=== PATIENT | female | born 1925 | race Caucasian/White ===

== ENCOUNTER 2016-11-19 22:01 | Inpatient (IN) | payer OTHER, MEDICARE ==
[~2016-11-19] VITALS: Ht 160 cm; Wt 56.8 kg
--- NOTE | ~2016-11-19 | EKG ---
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 MCINTYRE : 1925 Requested By: Flako Santos Order Number: [id number] MD: Joaquin Bates Measurements Intervals [place] Rate: 113 P: RI: QRS: -69 QRSD: 141 T: 121 QT: 351 QTc: 482 Interpretive Statements Atrial fibrillation Left bundle branch block Baseline wander in lead(s) V1 Compared to ECG 05/26/2011 08:24:42 Ventricular-paced complex(es) or rhythm no longer present Electronically Signed On 11-20-2016 8:00:36 CDT by Joaquin Bates [email or web address] <ELECTRONICALLY SIGNED> By: Joaquin Bates MD, [facility] 11/20/16 0800 25 Joaquin Bates MD, [facility] /EPI
--- NOTE | ~2016-11-19 | EKG ---
[address] [place] [address] ELECTROCARDIOGRAM REPORT Name: AYANNA AYERS Room #: 421-P ADM IN M.R.#: [id number] Admission: 11/20/16 Attend Phys: Shakir Haskins Discharge: Date of : [birth year] Report #: [id number] THIS REPORT FOR: //name// 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 : 1925 Requested By: Saravanan Carmona Order Number: [id number] MD: Joaquin Bates Measurements Intervals [place] Rate: 102 P: [place]: QRS: -65 QRSD: 139 T: 102 QT: 335 QTc: 437 Interpretive Statements Atrial fibrillation Multiple ventricular premature complexes Left bundle branch block Compared to ECG 11/19/2016 22:26:09 No significant change was found Electronically Signed On 11-22-2016 13:58:07 CDT by Joaquin Bates [email or web address] <ELECTRONICALLY SIGNED> By: Joaquin Bates MD, [facility] 11/22/16 1358 1049 1049 Joaquin Bates MD, [facility] /EPI
--- NOTE | ~2016-11-19 | EKG ---
[address] [address] ELECTROCARDIOGRAM REPORT Name: AYANNA AYERS Room #: 421- ADM IN M.R.#: [id number] Admission: 11/20/16 Attend Phys: Shakir Haskins Discharge: Date of : [birth year] Report #: [id number] THIS REPORT FOR: //name// [facility] Test Date: 2016-11-23 Test Time: 07:38:46 Pat Name: AYANNA AYERS Department: Room: 421 Gender: F Check Processor: SVETLANA : 1925 Requested By: Bess Duron Order Number: [id number] MD: Win Joaquin Measurements Intervals [place] Rate: 90 P: CT: QRS: -70 QRSD: 137 T: 97 QT: 375 QTc: 459 Interpretive Statements Atrial fibrillation Ventricular premature complex Left bundle branch block Compared to ECG 11/21/2016 10:49:29 No significant changes Electronically Signed On 11-23-2016 21:15:45 CDT by Win Joaquin [email or web address] <ELECTRONICALLY SIGNED> By: Win Joaquin MD 11/23/165 7 7 Win Joaquin MD /AWILDA
[~2016-11-19 22:01] MED LIST: ASPIRIN EC81 M1 PO; ATENOLOL 25 MG25 M1 PO; B-COMPLEX 100400 MC1 PO; CALCIUM OYSTER500 MG PO; CARBIDOPA-LEVO1 EAC4 PO; CARBIDOPA-LEVO1 EAC5 PO; COUMADIN 2 MG TA2 M1 PO; COUMADIN 4 MG TA4 M1 PO; FISH OIL 1,0001 EAC5 PO; FLAX OIL1000 MG PO; HYDROCHLOROTHIA25 M1 PO; ICAPS TABLET1 EACH PO; LEXAPRO 10 MG T10 MG PO; LIPITOR40 MG PO; OMEPRAZOLE20 M2 PO; PINDOLOL PO; PRIMIDONE50 MG PO; RESTASIS1 EACH GTT; RYTHMOL225 MG PO; THERA-M CAPLET1 EACH PO; TIKOSYN.25; TOPROL XL50 MG; VITAMIN D31000 UNI2 PO; XANAX 0.5 MG0.5 MG PO; [UNRECOGNIZED DRUG - OTHER] PO
[2016-11-19 22:11] VITALS: BP 155/85
[2016-11-19 22:35] LABS: ABSOLUTE NEUTROPHILS 6.8 thou/uL (1.4-8.2); BASOPHILS 0.3 % (0.0-2.0); EOSINOPHILS 0.2 % (0.0-3.0); HEMATOCRIT 37.3 % (37.0-47.0); HEMOGLOBIN 12.7 gm/dL (12.0-15.0); LYMPHOCYTES 10.2 % (24.0-44.0); MCH 33.6 pg (26.0-34.0); MCV 98.9 fL (80.0-100.0); MONOCYTES 8.7 % (1.0-8.0); PLATELET COUNT 167 thou/uL (150-400); POLYS 80.6 % (36.0-66.0); RBC 3.77 mil/uL (4.20-5.00); RDW 13.2 % (10.5-14.5); WBC 8.4 thou/uL (4.0-11.0)
[2016-11-19 22:36] LABS: MANUAL DIFF NO
[2016-11-19 22:44] LABS: CALCIUM 8.8 mg/dL (8.5-10.1); CREATININE 0.8 mg/dL (0.6-1.0); POTASSIUM 3.6 mmol/L (3.5-5.1)
[2016-11-19 22:49] LABS: ALBUMIN 3.5 g/dL (3.4-5.0); TOTAL BILIRUBIN 0.8 mg/dL (<0.1-1.0); TOTAL PROTEIN 8.1 g/dL (6.4-8.2)
[2016-11-19 22:51] LABS: INR 2.4; PROTIME 24.6 Seconds (9.3-11.4)
[2016-11-19] MEDS ORDERED: AZITHROMYCIN 2250 MG PO (22:51)
[2016-11-19] MEDS ORDERED: LIPITOR 20 MG T20 M1 PO (22:52)
[2016-11-19] MEDS ORDERED: K-DUR 20 MEQ T20 MEQ PO (22:52)
[2016-11-19] MEDS ORDERED: METOPROLOL SUCC50 MG PO (22:52)
[2016-11-19] MEDS ORDERED: COUMADIN 3 MG TA3 M1 PO (22:52)
[2016-11-19] MEDS ORDERED: LASIX 20 MG TAB20 MG PO (22:52)
[2016-11-20 00:43] LABS: URINE BILIRUBIN NEGATIVE (Negative); URINE BLOOD 1+ (Negative); URINE COLOR YELLOW; URINE GLUCOSE-RANDOM* NEGATIVE (Negative); URINE KETONES NEGATIVE (Negative); URINE LEUKOCYTES-REFLEX NEGATIVE (Negative); URINE PROTEIN (DIPSTICK) NEGATIVE (Negative); URINE SPECIFIC GRAVITY <= 1.005 (1.003-1.035); URINE UROBILINOGEN 0.2 E.U./dl (0.2-1.0)
[2016-11-20 01:01] LABS: SQUAMOUS >10 Many /LPF (0-3)
[2016-11-20 01:02] LABS: CASTS None Seen /LPF (None Seen); CRYSTALS None Seen /LPF (None Seen); URINE RBC 3-10 Few /HPF (0-2); URINE WBC-REFLEX 0-5 Rare /HPF (0-5)
[2016-11-20 01:21] VITALS: BP 113/75
[2016-11-20 02:00] VITALS: BP 123/68
[2016-11-20 06:30] LABS: HEMATOCRIT 35.3 % (37.0-47.0); HEMOGLOBIN 11.9 gm/dL (12.0-15.0); MCH 33.5 pg (26.0-34.0); MCHC 33.6 g/dL (28.0-37.0); MCV 99.8 fL (80.0-100.0); RBC 3.54 mil/uL (4.20-5.00); RDW 13.3 % (10.5-14.5); WBC 7.5 thou/uL (4.0-11.0)
[2016-11-20 06:39] LABS: INR 2.2; PROTIME 22.7 Seconds (9.3-11.4)
[2016-11-20 06:42] LABS: CALCIUM 8.4 mg/dL (8.5-10.1); CREATININE 0.7 mg/dL (0.6-1.0); POTASSIUM 3.7 mmol/L (3.5-5.1)
[2016-11-20 07:17] VITALS: BP 143/91
[2016-11-20 15:27] VITALS: BP 131/74
[2016-11-20 21:45] VITALS: BP 140/86
[2016-11-21 04:00] VITALS: BP 140/82
[2016-11-21 07:10] VITALS: BP 143/71
[2016-11-21 15:37] VITALS: BP 130/77
[2016-11-21 20:00] VITALS: BP 166/89
[2016-11-22 04:34] VITALS: BP 165/85
[2016-11-22 07:19] VITALS: BP 145/83
[2016-11-22 11:35] LABS: INR 1.4; PROTIME 14.5 Seconds (9.3-11.4)
[2016-11-22 14:55] VITALS: BP 126/67
[2016-11-22 20:00] VITALS: BP 159/92
[2016-11-23 04:30] VITALS: BP 168/91
[2016-11-23 05:52] LABS: INR 1.4; PROTIME 14.4 Seconds (9.3-11.4)
[2016-11-23 05:56] LABS: ALBUMIN 2.9 g/dL (3.4-5.0); CALCIUM 8.8 mg/dL (8.5-10.1); CREATININE 0.6 mg/dL (0.6-1.0); PHOSPHORUS 3.5 mg/dL (2.5-4.9); POTASSIUM 3.5 mmol/L (3.5-5.1)
[2016-11-23 07:16] VITALS: BP 162/92
[2016-11-23 16:29] VITALS: BP 157/87
[2016-11-23 20:00] VITALS: BP 152/86
[2016-11-24 03:41] VITALS: BP 143/70
[2016-11-24 06:20] LABS: INR 1.5; PROTIME 15.9 Seconds (9.3-11.4)
[2016-11-24 08:21] VITALS: BP 145/74
[2016-11-24] MEDS ORDERED: CEFDINIR300 MG PO (09:28)
[2016-11-24 09:50] VITALS: BP 145/74
[2016-11-24 09:59] VITALS: BP 145/74
== END 2016-11-24 12:36 | disposition home health service (06) | DRG 871 ==
LOC: ER 22:01 → EROBS 11-20 01:03 → 4E 11-20 01:03
PROVIDERS: Emergency Medicine; Hospitalist; Nurse Practitioner Family
DX: A41.9 Sepsis, unspecified organism (principal); J18.9 Pneumonia, unspecified organism; I48.91 Unspecified atrial fibrillation; I25.10 Atherosclerotic heart disease of native coronary artery without angina pectoris; I10 Essential (primary) hypertension; E78.5 Hyperlipidemia, unspecified; E78.00 Pure hypercholesterolemia, unspecified; F41.9 Anxiety disorder, unspecified; I49.5 Sick sinus syndrome; Z88.6 Allergy status to analgesic agent; Z88.1 Allergy status to other antibiotic agents; Z79.82 Long term (current) use of aspirin; Z86.74 Personal history of sudden cardiac arrest; I25.2 Old myocardial infarction; Z87.891 Personal history of nicotine dependence; Z79.899 Other long term (current) drug therapy; Z95.2 Presence of prosthetic heart valve; Z95.0 Presence of cardiac pacemaker
CPT/HCPCS: 10183